=== PATIENT | female | born 2005 | race Hispanic/Latino ===

== ENCOUNTER 2025-01-02 00:01 | Emergency (ER) | payer SELFPAY ==
[~2025-01-02] VITALS: Ht 160 cm; Wt 48.1 kg
[2025-01-02 00:34] LABS: BASOPHILS % 0.5 % (0.0-1.0); EOSINOPHILS % 7.5 % (0.0-6.0); LYMPHOCYTES % 27.4 % (18.0-39.1); MONOCYTES % 5.1 % (4.4-11.3); NEUTROPHILS % 59.2 % (38.7-80.0); RED CELL DISTRIBUTION WIDTH 13.2 % (11.7-14.4)
[2025-01-02 00:47] LABS: EST GLOMERULAR FILTRATION RATE 135.0 ML/MIN (>=60)
[2025-01-02 01:32] LABS: LEUKOCYTE ESTERASE ,URINE NEGATIVE (NEGATIVE); PROTEIN,URINE DIPSTICK NEGATIVE (NEGATIVE); URINE UROBILINOGEN 0.2 mg/dL (0.2 - 1)
[2025-01-02 01:39] LABS: EPITHELIAL CELLS,URINE MODERATE /LPF
[2025-01-02 02:43] VITALS: PULSE 70; RESP 15; TEMP 98.2
[2025-01-02 02:58] VITALS: BP 110/73; PULSE 70; RESP 15; TEMP 98.2; O2SAT 100
[2025-01-02] MEDS ORDERED: MACROBID 100 M100 MG PO (03:07)
== END 2025-01-02 03:13 | disposition home or self-care (01) ==
LOC: ER 01:06
DX: O23.41 Unspecified infection of urinary tract in pregnancy, first trimester (principal); N39.0 Urinary tract infection, site not specified; Z3A.11 11 weeks gestation of pregnancy
CPT/HCPCS: 36415; 76801; 76817; 80048; 81001; 84702; 85025; 93976; 99283